=== PATIENT | male | born 1970 | race Caucasian/White ===

== ENCOUNTER 2020-03-15 16:41 | Emergency (ER) | payer OTHER, SELFPAY ==
[2020-03-15 16:42] VITALS: BP 141/83; PULSE 94; RESP 18; TEMP 36.6; O2SAT 95; BMI 40.8
--- NOTE | 2020-03-15 17:53 | ED.DCSUM_ITS ---
History of Present Illness Chief Complaint: Lower Extremity Injury Narrative: 49-year-old male states that he was walking in a straight line when he felt a twinge in the medial aspect of his right knee. He states that it started hurting more he feels like he cannot bear weight on it because of this. He is not had this injury before. He is not had surgery on his right knee before. He denies any direct trauma. No paresthesias. Past Medical History - Allergies and Home Meds Allergies/Adverse Reactions: Allergies No Known Allergies Allergy (Verified 03/15/20 16:44) Primary Care Physician: Care Physician,No Primary [Primary Care Provider] - Prior records reviewed: Yes Lives: Alone Smoking Status: Unknown if ever smoked Alcohol: None Drugs: None Review of Systems General: Denies: Chills, Fever, Sweats Eyes: Denies: Visual changes - bilaterally, Diplopia ENT: Denies: Rhinorrhea, Sore throat Cardiovascular: Denies: Chest pain, Palpitations Respiratory: Denies: Dyspnea, Cough, Dyspnea on exertion Gastrointestinal: Denies: Abdominal pain, Nausea, Vomiting, Diarrhea, Melena, Hematochezia Genitourinary: Denies: Dysuria, Hematuria, Frequency Musculoskeletal: Reports: Extremity Pain - Pain in right medial knee Skin: Denies: Rash, Abscess Neurological: Denies: Headache, Parasthesia Psych: Denies: Depression Physical Exam Vital Signs/Narrative: Vital Signs Temp Pulse Resp BP Pulse Ox 03/15/20 16:42 97.8 F 94 18 141/83 H 95 Inital Vital Signs reviewed: Yes General: Well nourished, Well developed Head: Normocephalic Eyes: Perrl ENT: Moist mucous membranes Cardiovascular: Regular rate, Regular rhythm Respiratory: No distress, CTA bilaterally Abdomen: Soft Extremities: - - Is to palpation on the medial joint line of the right knee. There is pain with valgus pressure. Appear to be ligament laxity. There is no patellar tenderness. The extensor mechanism is intact. Skin: Normal color, No rash Neurological: Alert, Oriented x3 Psychological: Normal affect Diagnostic/Tx/Re-eval Clinical Impression(s) from Imaging Studies Knee X-Ray 03/15/20 18:07 IMPRESSION: Normal x-ray examination of the knee. Electronically Signed: Mk Alexander MD at 18:20 EDT Tel , Service support , - Medical Decision Making Patient has pain in the medial joint line and pain with valgus testing. I believe he likely has a meniscus tear. There is no bony abnormalities. Knee x- ray is negative. He is given Naprosyn in the ED. 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 This was provided. Patient was given return precautions. Patient stable for discharge. ED Disposition - Plan for ED Patient: Disposition: Home or Assisted Living Instructions: ED Meniscal Injury Knee Poss, ED Knee Pain [facility] Prescriptions: Naproxen [Naprosyn] 500 mg PO BID PRN #20 tab Prescription Printed Referrals: Care Physician,No Primary [Primary Care Provider] -
--- NOTE | 2020-03-15 18:07 | RAD_ITS ---
STUDY: X-RAY - RIGHT KNEE REASON FOR EXAM: Male, 49 years old. RIGHT KNEE PAIN. NKI TECHNIQUE: 5 view(s) of the knee. COMPARISON: None. FINDINGS: Normal visualized distal femur. Normal visualized proximal tibia and fibula. Normal proximal tibiofibular articulation. Normal medial femorotibial compartment. Normal lateral femorotibial compartment. Normal patellofemoral articulation. The soft tissue structures are unremarkable. RAD/Knee 4 or More Views IMPRESSION: Normal x-ray examination of the knee. Electronically Signed: Mk Alexander MD at 18:20 EDT Tel , Service support ,
[2020-03-15] MEDS: Naproxen 250 MG Tablet 500 MG PO (18:15)
[2020-03-15 19:39] VITALS: RESP 18
== END 2020-03-15 19:42 | disposition home or self-care (01) ==
PROVIDERS: Emergency Provider Student in an Organized Health Care Education/Training Program
DX: S89.91XA Unspecified injury of right lower leg, initial encounter (principal); X58.XXXA Exposure to other specified factors, initial encounter; Y93.01 Activity, walking, marching and hiking; Y92.9 Unspecified place or not applicable
CPT/HCPCS: 73564; 99284

== ENCOUNTER → 2020-04-07 10:02 | Outpatient (CLI) | payer OTHER, SELFPAY ==
[2020-03-15 16:42] VITALS: BMI 40.8
--- NOTE | 2020-04-07 10:34 | RAD_ITS ---
STUDY: X-RAY CHEST REASON FOR EXAM: Male, 49 years old. PRE OP FOR KNEE SURGERY, NO CHEST COMPLAINTS TECHNIQUE: PA and lateral views of the chest. COMPARISON: None. FINDINGS: 5.9 mm calcified granuloma in the lateral aspect of the left lung. There is no demonstrated pleural abnormality. There is borderline cardiomegaly. Bilateral calcified hilar lymph nodes. Normal visualized pulmonary arteries. There is atherosclerotic tortuosity of the aortic arch and descending thoracic aorta. Normal visualized thoracic spine. Normal visualized ribs, clavicles, and shoulders. There is no demonstrated abnormality of the visualized soft tissue structures of the upper abdomen. RAD/Chest PA and Lateral IMPRESSION: No acute abnormality is seen. Electronically Signed: Jose F Lopez, at 14:43 EDT , Service support ,
[2020-04-07 11:34] LABS: Absolute Lymphocyte Count 3.11 X10^3/uL (0.83-4.51); Absolute Neutrophil Count 5.5 X10^3/uL (2.0-7.7); Basophil# 0.13 X10^3/uL; Basophil% 1.3 % (0-1); Eosinophil# 0.51 X10^3/uL; Hematocrit 45.9 % (40-54); Hemoglobin 15.2 g/dL (13.0-16.5); Lymphocyte # 3.11 X10^3/ul (4.0); Lymphocyte % 30.6 % (19-41); Mean Corp Hgb Conc 33.1 g/dL (32-36); Mean Corpuscular Hgb 29.1 pg (27.0-32.0); Mean Corpuscular Volume 87.9 fL (80-94); Mean Platelet Vol. 11.2 fl (6.2-12.0); Monocyte# 0.88 X10^3/uL; Monocyte% 8.7 % (0-10); NRBC Flagged by Analyzer 0 % (0-5); Neutrophil # 5.51 X10^3/uL (2.7-7.7); Neutrophil % 54.1 % (47-70); Platelet Count 334 K/mm3 (150-450); RBC Distribution Width SD 42.1 fl (35.1-43.9); Red Blood Count 5.22 M/mm3 (4.6-6.2); White Blood Count 10.2 K/mm3 (4.4-11.0)
[2020-04-07 11:58] LABS: Anion Gap 4 (5-15); BUN 16 mg/dL (7-18); BUN/Creat Ratio 22.3 RATIO (10-20); Calcium,Total 9.3 mg/dL (8.5-10.1); Chloride 109 mmol/L (98-107); Creatinine, Serum 0.72 mg/dL (0.70-1.30); EST Glomerular Filtration Rate 123 mL/min (>60); Est Glom Filt Rate - Afr Amer 149 mL/min (>60); Glucose 78 mg/dL (74-106); Potassium 4.6 mmol/L (3.5-5.1); Sodium Level 139 mmol/L (136-145)
== END ==
PROVIDERS: Referring Provider Specialist; Visit Provider Specialist
DX: Z01.818 Encounter for other preprocedural examination (principal); Z01.811 Encounter for preprocedural respiratory examination
CPT/HCPCS: 36415; 71046; 80048; 85025